=== PATIENT | female | born 1960 | race Caucasian/White ===

== ENCOUNTER 2021-04-08 21:16 | Emergency (ER) | payer OTHER ==
[~2021-04-08 21:16] MED LIST: CERTAGEN1 EACH PO; LOVAZA1 GM PO; OS-CAL500 MG PO; SYNTHROID125 MCG PO; TRILIPIX135 MG PO; VITAMIN D33000 UNIT PO
[2021-04-08] MEDS ORDERED: NORCO 5-325 TA1 EACH PO (22:49)
== END 2021-04-08 22:58 | disposition home or self-care (01) ==
LOC: FER 21:16
DX: S82.432A Displaced oblique fracture of shaft of left fibula, initial encounter for closed fracture (principal); S82.55XA Nondisplaced fracture of medial malleolus of left tibia, initial encounter for closed fracture; Z88.0 Allergy status to penicillin; Z88.5 Allergy status to narcotic agent; W01.0XXA Fall on same level from slipping, tripping and stumbling without subsequent striking against object, initial encounter; Y92.009 Unspecified place in unspecified non-institutional (private) residence as the place of occurrence of the external cause
CPT/HCPCS: 73590

== ENCOUNTER → 2021-04-13 | Day surgery (SDC) | payer OTHER ==
[~2021-04-13] VITALS: Ht 160 cm; Wt 70.3 kg
[~2021-04-13] MED LIST changes: +NORCO 5-325 TA1 EACH PO
[2021-04-13 06:40] LABS: HCT 38.5 % (37.0-47.0); MCHC 33.8 g/dL (32.0-36.0); MCV 85.7 fL (78.0-100.0); MPV 9.5 fL (6.0-9.5); RBC 4.49 M/uL (4.20-5.40); RDW 12.8 % (11.5-14.0); WBC 5.9 K/uL (4.0-10.5)
[2021-04-13 06:55] LABS: BUN/CREAT RATIO (CALC) 35.8 RATIO; CREATININE 0.53 mg/dL (0.51-0.95); POTASSIUM 3.5 mmol/L (3.5-5.1)
== END | disposition home or self-care (01) ==
LOC: FAS 05:54
PROVIDERS: Legal Medicine
DX: S82.852A Displaced trimalleolar fracture of left lower leg, initial encounter for closed fracture (principal); S93.432A Sprain of tibiofibular ligament of left ankle, initial encounter; G89.18 Other acute postprocedural pain; E78.00 Pure hypercholesterolemia, unspecified; E11.9 Type 2 diabetes mellitus without complications; E03.9 Hypothyroidism, unspecified; M19.90 Unspecified osteoarthritis, unspecified site; Z88.0 Allergy status to penicillin; W19.XXXA Unspecified fall, initial encounter
CPT/HCPCS: 36415; 73600; 76000; 80048; C1713; J0735; J1100; J1170; J1885; J2250; J2405; J2704; J2795; J3010; J7120